=== PATIENT | female | born 1945 | race Asian ===

== ENCOUNTER 2023-06-04 15:46 | Emergency (ER) | payer OTHER ==
[~2023-06-04] VITALS: Ht 152.4 cm; Wt 69.4 kg
[2023-06-04 16:08] VITALS: BP_SYST 133; PULSE 69; RESP 18; TEMP 97.6; O2SAT 96
[2023-06-04 17:55] LABS: BASOPHILS % (AUTO) 0.6 % (0.0-2.0); EOSINOPHILS # (AUTO) 0.3 K/uL (0.0-0.4); EOSINOPHILS % (AUTO) 4.5 % (0.0-4.0); HEMATOCRIT 38.2 % (36-48); HEMOGLOBIN 12.5 g/dL (12.0-16.0); LYMPHOCYTES # (AUTO) 2.4 K/uL (1.0-5.5); LYMPHOCYTES % (AUTO) 36.6 % (20.5-51.5); MEAN CORPUSCULAR HEMOGLOBIN 29 pg (27-31); MEAN CORPUSCULAR HGB CONC 33 % (32-36); MEAN CORPUSCULAR VOLUME 90 fL (79.0-98.0); MONOCYTES # (AUTO) 0.6 K/uL (0.0-1.0); MONOCYTES % (AUTO) 9.9 % (1.7-9.3); NEUTROPHILS # (AUTO) 3.1 K/uL (1.8-7.7); NEUTROPHILS % (AUTO) 48.4 % (40.0-70.0); PLATELET COUNT (AUTO) 225 K/uL (130-430); RED BLOOD CELL COUNT(AUTO) 4.25 MIL/uL (4.2-6.2); RED CELL DISTRIBUTION WIDTH 13.3 % (9.0-15.0); WHITE BLOOD COUNT (AUTO) 6.5 K/uL (4.8-10.8)
[2023-06-04 18:12] LABS: ANION GAP 5 (5-15); CALCIUM 8.5 mg/dL (8.4-11.0); CARBON DIOXIDE 34 mmol/L (23-29); CHLORIDE 106 mmol/L (98-107); CREATININE 1.07 mg/dL (0.55-1.30); GLUCOSE 116 mg/dL (74-106); POTASSIUM 4.6 mmol/L (3.5-5.1); SODIUM SERUM 145 mmol/L (136-145); UREA NITROGEN, BLOOD 25 mg/dL (8-21)
[2023-06-04] MEDS ORDERED: iohexoL 350 mgI/mL, 100 ML INFUS..BTL IV ONE (19:47)
[2023-06-04] MEDS ORDERED: SULF1TAB48 PO (22:23)
[2023-06-04 23:41] VITALS: BP_SYST 124; PULSE 63; RESP 10; TEMP 97.9; O2SAT 95
== END 2023-06-04 23:35 | disposition home or self-care (01) ==
LOC: SED 15:46
DX: J18.9 Pneumonia, unspecified organism (principal); R60.0 Localized edema; I10 Essential (primary) hypertension; Z88.0 Allergy status to penicillin
CPT/HCPCS: 99285; 93970; 96365; 71275; 71045; 80048; 83880; 85025; 85379; 87040; 84484; 36415; 93005; Q9967; J1956